=== PATIENT | male | born 1975 | race Caucasian/White ===

== ENCOUNTER 2019-11-04 11:32 | Inpatient (IN) | payer SELFPAY ==
[2019-11-04] VITALS (7 sets, daily range): BP systolic 110–145; BP diastolic 74–83
[~2019-11-04] VITALS: Ht 167.6 cm; Wt 71.0 kg
[2019-11-04] MEDS ORDERED: ALBUTEROL SULFATE 2.5 MG/3 ML NEBU. ONE (11:42)
[2019-11-04] MEDS ORDERED: IPRATRPIUM/ALBUTEROL 0.5/2.5MG 3 ML NEBU. ONE ×2 (11:42→11:43)
[2019-11-04] MEDS ORDERED: TERBUTALINE 1 MG/ML VIAL. ONE (11:48)
[2019-11-04] MEDS ORDERED: MAGNESIUM SULFATE 2GM 50 ML IV ONE ×2 (11:48→12:00)
--- NOTE | 2019-11-04 11:52 | PHYS DOC ---
Past History Past Medical History: Asthma Past Surgical History: No Surgical History Smoking: Quit Less Than 1 Year Alcohol Use: None General Adult EDM: Chief Complaint: SHORTNESS OF BREATH HPI: HPI: Patient is a 44-year-old male who presents to the emergency department for evaluation of respiratory distress. He states he has been having increasing shortness of breath over the past 6 weeks, but he delayed coming to medical care because of concerns about COVID-19. He states he has had a cough, sometimes productive of yellowish sputum, sometimes productive of reddish sputum. He den ies any pain. He has not had any fevers, pleuritic chest pain, dizziness or lightheadedness. He states that he is a former smoker having quit about a year ago. He does, however, chew tobacco. He denies having had any taste or smell changes, myalgias, or any known COVID contacts or significant recent travel. Exertion worsens the shortness of breath. Upon arrival he was noted to be sitting in a tripod position, with 90% oxygen saturation on room air. His oxygenation improved to the upper 90s on application of a nasal cannula. He is diaphoretic and tachycardic. Review of Systems: Review of Systems: Constitutional: Denies fever or chills Eyes: Denies change in visual acuity HENT: Denies nasal congestion or sore throat Respiratory: As per HPI Cardiovascular: Denies chest pain or edema GI: Denies abdominal pain, nausea, vomiting, bloody stools or diarrhea : Denies dysuria Musculoskeletal: Denies back pain or joint pain Integument: Denies rash Neurologic: Denies headache, focal weakness or sensory changes Endocrine: Denies polyuria or polydipsia Lymphatic: Denies swollen glands Psychiatric: Denies depression or anxiety Heart Score: Risk Factors: Risk Factors: DM, Current or recent (<one month) smoker, HTN, HLP, family history of CAD, obesity. Risk Scores: Score 0 - 3: 2.5% MACE over next 6 weeks - Discharge Home Score 4 - 6: 20.3% MACE over next 6 weeks - Admit for Clinical Observation Score 7 - 10: 72.7% MACE over next 6 weeks - Early Invasive Strategies Current Medications: Current Meds: Current Medications Medications (Trade) Dose Ordered Sig/Jenna Start Time Stop Time Status Last Admin Dose Admin Albuterol Sulfate (Ventolin) 2.5 mg STK-MED ONCE 11/04/19 11:42 11/04/19 11:43 DC Albuterol/ Ipratropium (Duoneb) 3 ml 1X ONCE 11/04/19 11:45 11/04/19 11:46 UNV Magnesium Sulfate 50 ml @ 25 mls/hr 1X ONCE 11/04/19 11:45 11/04/19 13:44 UNV Methylprednisolone Sodium Succinate (SOLU-Medrol 125MG VIAL) 125 mg 1X ONCE 11/04/19 11:45 11/04/19 11:46 UNV Sodium Chloride 1,000 ml @ 1,000 mls/hr 1X ONCE 11/04/19 11:45 11/04/19 12:44 UNV Terbutaline Sulfate (Brethine) 0.25 mg 1X ONCE 11/04/19 11:45 11/04/19 11:46 UNV Allergies: Allergies: Allergies Coded Allergies Type Severity Reaction Last Updated Verified No Known Drug Allergies 11/04/19 No Physical Exam: PE: PHYSICAL EXAM: CONSTITUTIONAL: Well developed, well nourished HEAD: normocephalic, atraumatic EENT: PERRL, EOMI. Conjunctivae normal color, sclerae non-icteric; moist mucous membranes. NECK: Supple, non-tender; no meningismus. LUNGS: There are diffuse coarse wheezes in all lung olivarez with significantly diminished air movement. Breathing is severely labored. Patient is speaking in 2-3 word sentences. There are no crackles HEART: Regular tachycardia, no murmur CHEST: No deformity; non-tender ABDOMEN: The abdomen is soft, and non-tender, no masses or bruits. EXTREM: Normal ROM; no deformity, no calf tenderness. Normal pulses palpable in all extremities. There is no pedal edema. SKIN: No rash; no diaphoresis NEURO: Alert; normal speech and cognition; CN's grossly intact; strength grossly intact without focal deficit. BACK: No CVA TTP. Current Patient Data: Labs: Laboratory Tests Test 11/04/19 11:45 White Blood Count 12.7 x10^3/uL Red Blood Count 5.23 x10^6/uL Hemoglobin 14.7 g/dL Hematocrit 44.7 % Mean Corpuscular Volume 85 fL Mean Corpuscular Hemoglobin 28 pg Mean Corpuscular Hemoglobin Concent 33 g/dL Red Cell Distribution Width 14.5 % Platelet Count 362 x10^3/uL Neutrophils (%) (Auto) 54 % Lymphocytes (%) (Auto) 29 % Monocytes (%) (Auto) 9 % Eosinophils (%) (Auto) 8 % Basophils (%) (Auto) 0 % Neutrophils # (Auto) 6.8 x10^3uL Lymphocytes # (Auto) 3.7 x10^3/uL Monocytes # (Auto) 1.2 x10^3/uL Eosinophils # (Auto) 1.0 x10^3/uL Basophils # (Auto) 0.0 x10^3/uL Prothrombin Time 10.8 SEC Prothromb Time International Ratio 1.0 Activated Partial Thromboplast Time 25 SEC Sodium Level 142 mmol/L Potassium Level 4.3 mmol/L Chloride Level 103 mmol/L Carbon Dioxide Level 30 mmol/L Anion Gap 9 Blood Urea Nitrogen 13 mg/dL Creatinine 1.0 mg/dL Estimated GFR (Cockcroft-Gault) 81.2 BUN/Creatinine Ratio 13 Glucose Level 135 mg/dL Lactic Acid Level 2.7 mmol/L Calcium Level 9.4 mg/dL Magnesium Level 2.1 mg/dL Total Bilirubin 0.8 mg/dL Aspartate Amino Transf (AST/SGOT) 23 U/L Alanine Aminotransferase (ALT/SGPT) 38 U/L Alkaline Phosphatase 103 U/L Troponin I Quantitative < 0.017 ng/mL CA-Dio-X-Type Natriuretic Peptide 55 pg/mL Total Protein 7.8 g/dL Albumin 3.5 g/dL Albumin/Globulin Ratio 0.8 Current Medications Medications (Trade) Dose Ordered Sig/Jenna Route PRN Reason Start Time Stop Time Status Last Admin Dose Admin Albuterol/ Ipratropium (Duoneb) 3 ml STK-MED ONCE .ROUTE 11/04/19 11:42 11/04/19 11:42 DC Albuterol Sulfate (Ventolin) 2.5 mg STK-MED ONCE .ROUTE 11/04/19 11:42 11/04/19 11:43 DC Albuterol/ Ipratropium (Duoneb) 3 ml STK-MED ONCE .ROUTE 11/04/19 11:43 11/04/19 11:43 DC Albuterol/ Ipratropium (Duoneb) 3 ml 1X ONCE NEB 11/04/19 12:00 11/04/19 12:01 DC 11/04/19 11:52 Methylprednisolone Sodium Succinate (SOLU-Medrol 125MG VIAL) 125 mg 1X ONCE IV 11/04/19 12:00 11/04/19 12:01 DC 11/04/19 11:52 Magnesium Sulfate 50 ml @ 25 mls/hr 1X ONCE IV 11/04/19 12:00 11/04/19 13:59 11/04/19 11:52 Terbutaline Sulfate (Brethine) 0.25 mg 1X ONCE SQ 11/04/19 12:00 11/04/19 12:01 DC 11/04/19 11:55 Sodium Chloride 1,000 ml @ 1,000 mls/hr Q1H IV 11/04/19 12:00 11/04/19 12:59 11/04/19 11:51 Albuterol/ Ipratropium (Duoneb) 3 ml 1X ONCE NEB 11/04/19 12:00 11/04/19 12:01 DC 11/04/19 11:52 Albuterol/ Ipratropium (Duoneb) 3 ml 1X ONCE NEB 11/04/19 12:00 11/04/19 12:01 DC 11/04/19 11:55 Sodium Chloride 1,000 ml @ 1,000 mls/hr 1X ONCE IV 11/04/19 12:00 11/04/19 12:59 11/04/19 12:00 Magnesium Sulfate 50 ml @ As Directed STK-MED ONCE IV 11/04/19 11:48 11/04/19 11:48 DC Terbutaline Sulfate (Brethine) 1 mg STK-MED ONCE .ROUTE 11/04/19 11:48 11/04/19 11:48 DC Ceftriaxone Sodium 1 gm/ Sodium Chloride 50 ml @ 100 mls/hr 1X ONCE IV 11/04/19 12:00 11/04/19 12:29 DC 11/04/19 12:00 Iohexol (Omnipaque 300 Mg/ml) 75 ml 1X ONCE IV 11/04/19 12:00 11/04/19 12:01 DC 11/04/19 12:20 Sodium Chloride 50 ml @ As Directed STK-MED ONCE .ROUTE 11/04/19 11:58 11/04/19 11:58 DC Ceftriaxone Sodium (Rocephin) 1 gm STK-MED ONCE .ROUTE 11/04/19 11:58 11/04/19 11:58 DC Azithromycin 500 mg/Sodium Chloride 250 ml @ 250 mls/hr 1X ONCE IV 11/04/19 12:45 11/04/19 13:44 Sodium Chloride 500 ml @ 0 mls/hr 1X ONCE IV 11/04/19 12:45 11/04/19 12:46 Vital Signs: Vital Signs Date Time Temp Pulse Resp B/P (MAP) Pulse Ox O2 Delivery O2 Flow Rate FiO2 11/04/19 11:36 98.4 138 24 144/91 (108) 88 Room Air EKG: EKG: Sinus tachycardia at a rate of 117 bpm, normal axis, normal intervals. There are no acute ischemic ST/T changes. [] Radiology/Procedures: Radiology/Procedures: PROCEDURE: CT ANGIOGRAPHY CHEST CT ANGIOGRAPHY CHEST INDICATION: Dyspnea. Comparison: None. TECHNIQUE: Following the uneventful administration of intravenous contrast, 75 cc Omnipaque 350, axial CT sections were obtained through the lungs and upper abdomen. Multiplanar reconstructions and MIP images were obtained. PQRS compliance statement: One or more of the following individualized dose reduction techniques were utilized for this examination: 1. Automated exposure control 2. Adjustment of the mA and/or kV according to patient size 3. Use of iterative reconstruction technique FINDINGS: Pulmonary arteries: No evidence of pulmonary thromboembolic disease. Lungs and Airways: Contrast opacities and consolidation involving the left lower lobe, and to a lesser extent the lingula. No abnormality of the central airways. Pleura: The pleural spaces are normal. Heart and Mediastinum: The visualized thyroid is normal in size and attenuation. No axillary or supraclavicular lymphadenopathy. No mediastinal, hilar or retrocrural lymphadenopathy. The heart and pericardium are within normal limits. The great vessels of the thorax are normal. Abdomen: Limited images through the upper abdomen show no abnormality of the visualized organs. Bones and Soft Tissues: The visualized bones and chest wall soft tissues are within normal limits. IMPRESSION: 1. No evidence of pulmonary thromboembolic disease. 2. Left lower lobe groundglass opacities and consolidation with a small amount in the lingula, concerning for an infectious/inflammatory process. [] Course & Med Decision Making: Course & Med Decision Making Pertinent Labs and Imaging studies reviewed. (See chart for details) 11:50 AM: The x-ray machine is currently an operative and will be at least 45 minutes before imaging might be able to be obtained, possibly longer. Thus the patient will undergo a chest CT. [] 12:45 PM: The patient's condition remains stable. I spoke with the hospit alist, who accepted the patient to the hospital for further evaluation and treatment. CRITICAL CARE TIME: 50 Minutes, excluding any procedures and care of other patients. Dragon Disclaimer: Dragon Disclaimer: This electronic medical record was generated, in whole or in part, using a voice recognition dictation system. Departure Departure: Impression: Primary Impression: Pneumonia Additional Impression: Respiratory distress Disposition: ADMITTED INPATIENT Admitting Physician: Roberto Cornelius Condition: STABLE Referrals: [facility]CP[facility] (PCP) SAM SHARMA MD November 04, 2019 11:52
[2019-11-04] MEDS ORDERED: IV NORMAL SALINE 50ML 50 ML ONE (11:58)
[2019-11-04] MEDS ORDERED: cefTRIAXone SODIUM 1 GM VIAL ONE (11:58)
[2019-11-04] MEDS ORDERED: TERBUTALINE 1 MG/ML VIAL. SQ ONE (12:00)
[2019-11-04] MEDS ORDERED: IV NORMAL SALINE 1,000ML 1,000 ML IV ONE (12:00)
[2019-11-04] MEDS ORDERED: IOHEXOL 300 MG/ML 75 ML VIAL. IV ONE (12:00)
[2019-11-04] MEDS ORDERED: IPRATRPIUM/ALBUTEROL 0.5/2.5MG 3 ML NEBU. NEB ONE ×3 (12:00)
[2019-11-04] MEDS ORDERED: methylPREDNISolone SOD SUCC PF 125 MG/2 ML VIAL. IV ONE (12:00)
[2019-11-04] MEDS ORDERED: IV NORMAL SALINE 1,000ML 1,000 ML IV SCH (12:00)
[2019-11-04 12:14] LABS: BASO % 0 % (0-3); EOS % 8 % (0-3); HEMATOCRIT 44.7 % (39.0-53.0); HEMOGLOBIN 14.7 g/dL (13.0-17.5); LYMPH # 3.7 x10^3/uL (1.0-4.8); LYMPH % 29 % (24-48); MEAN CORPUSCULAR HEMOGLOBIN 28 pg (25-35); MEAN CORPUSCULAR HGB CONC 33 g/dL (31-37); MEAN CORPUSCULAR VOLUME 85 fL (79-100); MONO # 1.2 x10^3/uL (0.0-1.1); MONO % 9 % (0-9); NEUT # 6.8 x10^3uL (1.8-7.7); NEUT % 54 % (31-73); PLATELET COUNT 362 x10^3/uL (140-400); RED BLOOD COUNT 5.23 x10^6/uL (4.30-5.70); RED CELL DISTRIBUTION WIDTH 14.5 % (11.5-14.5); WHITE BLOOD COUNT 12.7 x10^3/uL (4.0-11.0)
[2019-11-04 12:21] LABS: CALCIUM 9.4 mg/dL (8.5-10.1); GFR 81.2; POTASSIUM 4.3 mmol/L (3.5-5.1)
[2019-11-04 12:34] LABS: ALBUMIN 3.5 g/dL (3.4-5.0); ALBUMIN/GLOBULIN RATIO 0.8 (1.0-1.7); MAGNESIUM 2.1 mg/dL (1.8-2.4); TOTAL BILIRUBIN 0.8 mg/dL (0.2-1.0); TOTAL PROTEIN 7.8 g/dL (6.4-8.2)
--- NOTE | 2019-11-04 12:42 | RAD ---
CT ANGIOGRAPHY CHEST INDICATION: Dyspnea. Comparison: None. TECHNIQUE: Following the uneventful administration of intravenous contrast, 75 cc Omnipaque 350, axial CT sections were obtained through the lungs and upper abdomen. Multiplanar reconstructions and MIP images were obtained. RS compliance statement: One or more of the following individualized dose reduction techniques were utilized for this examination: 1. Automated exposure control 2. Adjustment of the mA and/or kV according to patient size 3. Use of iterative reconstruction technique FINDINGS: Pulmonary arteries: No evidence of pulmonary thromboembolic disease. Lungs and Airways: Contrast opacities and consolidation involving the left lower lobe, and to a lesser extent the lingula. No abnormality of the central airways. Pleura: The pleural spaces are normal. Heart and Mediastinum: The visualized thyroid is normal in size and attenuation. No axillary or supraclavicular lymphadenopathy. No mediastinal, hilar or retrocrural lymphadenopathy. The heart and pericardium are within normal limits. The great vessels of the thorax are normal. Abdomen: Limited images through the upper abdomen show no abnormality of the visualized organs. Bones and Soft Tissues: The visualized bones and chest wall soft tissues are within normal limits. IMPRESSION: 1. No evidence of pulmonary thromboembolic disease. 2. Left lower lobe groundglass opacities and consolidation with a small amount in the lingula, concerning for an infectious/inflammatory process. Electronically signed by: Inocente Gilbert MD (11/04/2019 12:39 PM) [id number]
[2019-11-04] MEDS ORDERED: IV NORMAL SALINE 500ML 500 ML IV ONE (12:45)
[2019-11-04] MEDS ORDERED: AZITHROMYCIN 500 MG in IV NORMAL SALINE 250ML 250 ML IV ONE (12:45)
[2019-11-04] MEDS ORDERED: IV NORMAL SALINE 250ML 250 ML ONE (12:56)
[2019-11-04] MEDS ORDERED: AZITHROMYCIN 500 MG VIAL. IV ONE (12:56)
--- NOTE | 2019-11-04 16:07 | HP ---
ADMIT DATE: 11/04/2019 ADMISSION HISTORY AND PHYSICAL ATTENDING PHYSICIAN: Dr. Lemus. CHIEF COMPLAINT: Shortness of breath. HISTORY OF PRESENT ILLNESS: The patient is a 44-year-old gentleman with a 2-day history of increasing shortness of breath. He had been a smoker in the past, supposedly he quit 2 months ago. He has not been exposed to any people with COVID-19 coronavirus. He has had a productive cough, yellowish sputum, sometimes reddish in color. He had some pleuritic type chest pain on the left side. He was severely short of breath and wheezing. He was given several breathing treatments, steroids with some improvement. By the time I saw him, he was better. He is still on supplemental oxygen. His CT scan showed emphysematous changes and a lobar consolidation involving the posterior segment of the left lower lobe. Clinically, he appears to have pneumococcal pneumonia. He was given a dose of Rocephin in the ED along with steroids and breathing treatments. PAST MEDICAL HISTORY: Unremarkable for any surgeries. He has not had a history of diabetes or hypertension. MEDICINES: He is not on any prescription meds. ALLERGIES: He has no recorded drug allergies. SOCIAL HISTORY: He smoked up to 2 months ago. There is a history of recreational drug use. He drinks socially. FAMILY HISTORY: Both parents alive at age 63, sketchy details. REVIEW OF SYSTEMS: Significant for the dyspnea with exertion. He had a productive cough, low-grade fevers, some chills, localized chest pain. No nausea or vomiting. All other systems reviewed and determined to be negative. PHYSICAL EXAMINATION: GENERAL: When I saw him, this is a pleasant young man. INITIAL VITAL SIGNS: Showed a blood pressure of 156/83, his pulse is 120 and regular, oxygen saturation 99% on 2 liters of supplemental oxygen. He is afebrile. HEENT: Head is without trauma. Pupils are reactive. Sclerae are nonicteric. Oropharynx is clear. NECK: Supple, no bruits. LUNGS: Coarse rhonchi at the left base. He had classic egophony sounds; when asked to cooperate, best heard at the left posterior base. CARDIOVASCULAR: Showed a tachycardic rhythm. No gallops. Peripheral pulses are palpable and full. ABDOMEN: Soft, scaphoid, nontender, no organomegaly. Bowel sounds are hypoactive. EXTREMITIES: Showed no cyanosis or edema. NEUROLOGIC: Focally intact. Speech is fluent. PERTINENT LABORATORY STUDIES: His hemoglobin is 14.7 g/dL, white count 12,700. Electrolytes are within normal range. Cardiac enzymes negative for coronary ischemia. CT as noted. ASSESSMENT: 1. A 44-year-old gentleman, smoker with lobar pneumonia involving the posterior segment of the left lower lobe, most likely this is a pneumococcal etiology. 2. Chronic obstructive pulmonary disease. 3. Ozcet-qb-tlfbqbr respiratory failure. PLAN: 1. Admit to the inpatient unit. 2. Telemetry monitoring. 3. Diet as tolerated. 4. He was given a dose of Rocephin. I will elect to treat him with better gram positive coverage with Zosyn. 5. Steroids will be continued. 6. Nebulizer therapy. SHIMA LEMUS MD DR: JANY/charmaine JOB#: [id number] / [id number]
[2019-11-04] MEDS: HYDROcodone/CHLORPHEN POLIS 5 ML SUS.ER.12H PO PRN (16:09)
[2019-11-04] MEDS: PIPERACILLIN/TAZOBACTAM 4.5 GM in IV NORMAL SALINE 50ML 50 ML IV SCH ×2 (18:03→23:42)
[2019-11-04] MEDS: PANTOPRAZOLE 40 MG TABLET. PO SCH (18:04)
[2019-11-04] MEDS ORDERED: ALBUTEROL SULFATE 8GM INHALER. INH PRN (18:15)
[2019-11-04] MEDS: BENZOCAINE/MENTHOL LOZNGE 18'S BOX. PO PRN (20:00)
[2019-11-05] VITALS (12 sets, daily range): BP systolic 114–139; BP diastolic 69–87
[2019-11-05] MEDS: BENZOCAINE/MENTHOL LOZNGE 18'S BOX. PO PRN ×2 (00:43→05:29)
--- NOTE | 2019-11-05 03:13 | EKG ---
[address] [address] Test Date: 2019-11-04 Test Time: 12:06:15 Pat Name: SUDHAKAR MALIK Department: Room: [place] [address] Gender: M Inside Barrel Lathe Operator: : 1975 Requested By: SAM SHARMA Order Number: [id number] Reading MD: Narciso Julio Measurements Intervals Aldie Rate: 117 P: 75 SC: 130 QRS: 86 QRSD: 88 T: 54 QT: 322 QTc: 454 Interpretive Statements SINUS TACHYCARDIA Electronically Signed On 11-06-2019 8:46:16 CDT by Narciso Julio
[2019-11-05] MEDS: HYDROcodone/CHLORPHEN POLIS 5 ML SUS.ER.12H PO PRN (05:29)
[2019-11-05] MEDS: PIPERACILLIN/TAZOBACTAM 4.5 GM in IV NORMAL SALINE 50ML 50 ML IV SCH ×2 (05:31→11:27)
[2019-11-05] MEDS: PANTOPRAZOLE 40 MG TABLET. PO SCH (08:12)
[2019-11-05] MEDS ORDERED: LACTOBACILLUS RHAMNOSUS GG 1 CAPSULE. PO SCH (09:00)
--- NOTE | 2019-11-05 09:39 | DS ---
DATE OF DISCHARGE: 11/05/2019 ATTENDING PHYSICIAN: Dr. Lemus. FINAL DISCHARGE DIAGNOSES: 1. Lobar pneumonia, left lower lobe posterior segment. 2. Chronic obstructive pulmonary disease. 3. Polysubstance abuse. 4. Yqand-sa-obktlyr respiratory failure, resolved. HISTORY OF PRESENT ILLNESS: The patient is a 44-year-old gentleman who comes in with a 2-day history of worsening shortness of breath. He has had cough, productive, feet low-grade fevers. Workup in the ED showed CT evidence of a lobar consolidation in the posterior segment of the left lower lobe. He was admitted for community-acquired lobar pneumonia, most likely streptococcal. PHYSICAL EXAMINATION: Please see the dictated note. PERTINENT LABORATORY AND X-RAY STUDIES: His hemoglobin is 14.7 g/dL, white count is 12,700. Electrolytes within normal range. His lactic acid was slightly elevated, but he was not septic by any means. Liver functions were normal. Troponin was nonischemic. CT of the chest showed no evidence of pulmonary embolus. He had left lower lobe ground-glass opacities and consolidation of the lingula consistent with lobar pneumonia. COURSE IN THE HOSPITAL: The patient was admitted. He was started initially on Rocephin. I switched him over to Zosyn. He did well. Steroids were added along with nebulizer therapy. Diet was advanced. By the next day, he felt better. Supplemental oxygen was taken off. He had adequate room air saturations. He felt better. The egophony and rhonchi in the left base persisted, but clinically he was stable to be discharged and finished treatment as an outpatient. Therefore, I selected Augmentin 875/125 one b.i.d. for 9 more days, prednisone 60 mg daily for 7 more days and stop and finally Tussionex 5 mL q. 12 hours p.r.n. cough. I suggested a followup visit with primary care physician in 10 days' time for recheck and followup x-ray. Whether or not he will accomplish this remains to be seen. Strong encouragement to avoid further recreational drug use or tobacco use. The patient was then discharged from our hospital in stable condition with explicit instructions and followup care. SHIMA LEMUS MD DR: JANY/charmaine JOB#: [id number] / [id number]
== END 2019-11-05 12:05 | disposition home or self-care (01) | DRG 193 ==
LOC: ER 11:32 → EDBD 11:32 → ICU 12:54
PROVIDERS: ADMIT Hospitalist; ATTEND Hospitalist
DX: J13 Pneumonia due to Streptococcus pneumoniae (principal); J96.20 Acute and chronic respiratory failure, unspecified whether with hypoxia or hypercapnia; J44.0 Chronic obstructive pulmonary disease with (acute) lower respiratory infection; F17.200 Nicotine dependence, unspecified, uncomplicated; Z79.899 Other long term (current) drug therapy; Z20.828 Contact with and (suspected) exposure to other viral communicable diseases
CPT/HCPCS: 36415; 71275; 80053; 83605; 83735; 83880; 84484; 85025; 85610; 85730; 87040; 87635; 93005; 94640; 96365; 96367; 96372; J0456; J0696; J2543; J2930; J3105; J3475; J7040; J7050; J7613; Q9967; 99291-25; J7030